=== PATIENT | female | born 1955 | race Caucasian/White ===

== ENCOUNTER 2019-09-17 09:35 | Outpatient (CLI) | payer MEDICARE, SELFPAY ==
--- NOTE | 2019-09-21 12:13 | WPDHOLTEREM ---
Holter/Event Monitor Holter/Event Monitor Date of procedure: 09/17/19 Procedure Type: 48 hour holter monitor Indications: Palpitations Conclusion: 1. 48 hour holter monitor on 09/17/19. 2. Underlying rhythm is sinus rhythm. HR range 51-129 bpm; average HR 71 bpm. 3. There are 392 premature supraventricular complexes and 1 supraventricular couplet. No supraventricular tachycardia. 4. There are 2,849 premature ventricular complexes, 55 ventricular couplets, 4 ventricular triplets, 146 ventricular bigeminy and 307 ventricular trigeminy. No ventricular tachycardia. 5. No sinoatrial or atrioventricular blocks. No significant pauses greater than 2 seconds. 6. Patient reports dizziness and palpitations which demonstrate sinus rhythm, HR range 64-89 bmp with one ventricular couplet.
== END 2019-09-17 09:36 | disposition home or self-care (01) ==
PROVIDERS: PCP Family Medicine; Visit Provider Physician Assistant
DX: R00.2 Palpitations (principal)
CPT/HCPCS: 93225; 93226

== ENCOUNTER 2019-09-17 10:06 | Emergency (ER) | payer MEDICARE, SELFPAY ==
--- NOTE | ~2019-09-17 | XR_ITS ---
XR chest 2V DATE: 09/17/2019 10:33 INDICATION: Chest pain, palpitations, profuse sweating. TECHNIQUE: AP and Lateral views COMPARISON: 08/12/2014 PA and lateral chest FINDINGS: Heart size is normal. No hilar or mediastinal enlargement. No pulmonary infiltrate or conso lidation, pleural effusion or pulmonary vascular congestion or pneumothorax is detected. Degenerative spurring of the thoracic and lumbar spine. Lumbar spinal rods and pedicle screws are not ed. IMPRESSION: No active cardiopulmonary disease Reviewed, dictated and finalized at location A.
--- NOTE | 2019-09-17 10:11 | ECG_ITS ---
Measurements Intervals [place] Rate: 69 P: 26 VA: 188 QRS: -3 QRSD: 97 T: 8 QT: 415 QTc: 446 Interpretive Statements SINUS RHYTHM VOLTAGE CRITERIA FOR LVH NONSPECIFIC T-WAVE ABNORMALITY- ANT/INF LEADS BASELINE ARTIFACT- I, II, AVL, V3, V6 BORDERLINE ECG Electronically Signed On 09-17-2019 13:57:41 CDT by Matthew Schrader D.O.
[2019-09-17 10:17] VITALS: BP 148/94; PULSE 70; RESP 15; TEMP 36.9; O2SAT 100
[2019-09-17 10:36] LABS: Basophils Absolute Auto 0.1 K/mm3 (0.0-0.1); Basophils Percent Auto 0.9 % (0.2-1.2); Eosinophils Absolute Auto 0.4 K/mm3 (0-0.3); Eosinophils Percent Auto 3.3 % (0-4.4); Hematocrit 42.4 % (37.0-47.0); Hemoglobin 13.8 g/dL (12.0-15.0); Immature Granulocyte Absolute 0.04 K/mm3 (0.00-0.031); Immature Granulocyte Percent A 0.3 % (0-0.5); Lymphocytes Absolute Auto 2.31 K/mm3 (0.9-3.2); Lymphocytes Percent Auto 19.5 % (18.3-44.2); Mean Corpuscular HGB Conc 32.5 g/dl (32-36); Mean Platelet Volume 9.1 fl (7.4-10.4); Monocytes Percent Auto 8.6 % (2.6-8.5); Neutrophils Percent Auto 67.4 % (45.5-73.1); Platelet Count Result 494 k/mm3 (150-375); Red Blood Count 4.93 M/mm3 (4.2-5.4); Red Cell Distribution Width 13.7 % (11.5-14.5); White Blood Count 11.9 K/mm3 (4.5-10.0)
[2019-09-17 10:48] LABS: Blood Urea Nitrogen 20 mg/dL (7-17); Carbon Dioxide 30 mmol/L (22-30); Chloride 96 mmol/L (98-107); Estimated CRCL calculation 77 ml/min; Estimated Glomerular Filt Rate > 60; Glucose 121 mg/dL (65-105); Potassium 3.4 mmol/L (3.4-5.0); Prothrombin Time 12.5 Seconds (11.1-14.7); Sodium 137 mmol/L (137-145)
[2019-09-17 10:49] LABS: Partial Thromboplastin Time 28.8 SECONDS (22.3-36.8)
[2019-09-17 11:00] LABS: Troponin I < 0.012 ng/mL (0.000-0.034)
--- NOTE | 2019-09-17 11:19 | ED.ARRPALP ---
HPI - Arrhythmia/Palpitations General Chief Complaint: Arrhythmia/Palpitations Stated Complaint: palpitations Time Seen by Provider: 09/17/19 10:55 History of Present Illness HPI narrative: Patient is a 64-year-old female who presents the ER with palpitations. Reports over the last month she has been having episodes where she becomes hot and sweaty and feel like her heart is racing. She will feel weak. No rotational dizziness or change in hearing. Occasional nausea but no vomiting. Has history of BPPV but had not particularly related the symptoms to that previous diagnosis. Ports symptoms can sometimes be worsened by looking down. Symptoms last anywhere from 5 minutes to several hours. Reports she had an episode at 1 AM today that lasted for several hours. She then had a couple brief episodes while in the ER and while going to be fitted for Holter monitor. They did not place her Holter monitor due to her sweating and feeling weak. PCPs performed outpatient labs without significant findings. Patient cannot identify any alleviating factors. Related Data Home Medications Medication Instructions Recorded Confirmed atenolol 50 mg tablet 50 mg PO DAILY 08/02/19 diclofenac potassium 50 mg tablet 50 mg PO TID 08/02/19 gabapentin 300 mg capsule 600 mg PO Q8H cap 08/02/19 omeprazole 20 mg capsule,delayed 20 mg PO DAILY 08/02/19 release trazodone 100 mg tablet 200 mg PO .qhs tablet 08/02/19 Allergies Allergy/AdvReac Type Severity Reaction Status Date / Time povidone Allergy Mild RASH AND Verified 09/17/19 10:16 ITCHING tetanus toxoid, adsorbed Allergy Mild CHILD Verified 09/17/19 10:16 ON O2 AFTER SHOT iodine Allergy Unknown Skin Verified 09/17/19 10:16 Reaction Tetanus Vaccines and Toxoid Allergy Unknown Swelling Verified 09/17/19 10:16 vancomycin Allergy Unknown Skin Verified 09/17/19 10:16 Reaction IODIENE Allergy Mild Rash Uncoded 09/17/19 10:16 TAPE Allergy Mild RASH/BLISTE Uncoded 09/17/19 10:16 RS Review of Systems Review of Systems: All systems reviewed & are unremarkable except as noted in HPI and below Constitutional: Constitutional: Denies chills, Reports fatigue, Denies fever(s) and Reports weakness Comments: Positive sweats ENT: Denies nasal congestion and Denies sore throat Cardiovascular: Cardiovascular: Denies chest pain, Reports rapid heart rate and Denies radiating jaw, neck or arm pain Respiratory: Respiratory: Denies cough, Denies dyspnea and Denies wheezing Gastrointestinal: Gastrointestinal: Denies abdominal pain, Reports nausea and Denies vomiting PMFSH Social History Social History Smoking status: Former smoker Smoking end date: 04/18/09 Alcohol intake: current Drinks per week: 3 Gender identity (if verbalized by the patient): Female Exam Narrative: Exam Narrative: GENERAL: Well-appearing, well-nourished, and in no acute distress. HEAD: Normocephalic, atraumatic. EYES: PERRL and EOMI. left gaze nystagmus that is worse than right gaze nystagmus that patient reports is chronic, right-sided strabismus. ENT: Mucous membranes moist. TMs normal bilaterally. CHEST: Clear to auscultation. No respiratory distress. HEART: Regular rate and rhythm. Normal peripheral pulses. ABDOMEN: Soft, nontender, nondistended, normal active bowel sounds. EXTREMITIES: Normal range of motion. No edema. Right foot drop from previous surgery. SKIN: Warm, dry, no rash. NEURO: Alert and oriented x3. Course Course Emergency Course: Unremarkable evaluation. Patient may be having symptoms from her BPPV. Will give meclizine for home. Recommend follow-up with PCP and obtaining outpatient Holter monitor. Unremarkable rhythm strip here, patient did have some PACs. Vital Signs Vital signs: Vital Signs Temperature 98.4 F 09/17/19 10:17 Pulse Rate 70 09/17/19 10:17 Respiratory Rate 15 09/17/19 10:17 B
[2019-09-17] MEDS: ASPIRIN 81 MG CHEWABLE TABLET 324 MG PO (11:47)
[2019-09-17 12:34] VITALS: PULSE 73; RESP 15; O2SAT 100
[2019-09-17 12:36] VITALS: BP 95/67; PULSE 76; RESP 16; O2SAT 100
[2019-09-17 13:53] LABS: Free T4 Free Thyroxine Reflex 1.18 ng/dL (0.78-2.19)
[2019-09-17 14:44] LABS: Total Triiodothyronine (T3) 1.72 NG/ML (0.97-1.69)
== END 2019-09-17 13:54 | disposition home or self-care (01) ==
PROVIDERS: Emergency Provider Emergency Medicine; PCP Family Medicine
DX: R00.2 Palpitations (principal); R42 Dizziness and giddiness; Z87.891 Personal history of nicotine dependence; R94.31 Abnormal electrocardiogram [ECG] [EKG]
CPT/HCPCS: 36415; 71046; 80048; 84439; 84443; 84480; 84484; 85025; 85610; 85730; 93005; 93225; 93226; 99284; A9270

== ENCOUNTER 2020-12-03 13:26 | Outpatient (CLI) | payer MEDICARE, SELFPAY ==
--- NOTE | ~2020-12-03 | DEXA_ITS ---
Bone Density Report Name: Laverne Webb Age: 65 Sex: Female Ethnicity: White Date of : 1955 Indication: postmenopausal; height loss; Referring Provider: Eduard Thacker Study: Bone densitometry was performed. Exam Date: December 03, 2020 Accession number: [id number] Bone Density: Region BMD T-score Z-score Classification Femoral Neck (Left) 0.672 -1.6 -0.1 Osteopenia Total Hip (Left) 0.910 -0.3 1.0 Normal World Health Organization criteria for BMD impression classify patients as: Normal (T-score at or above -1.0), Osteopenia (T-score between -1.0 and -2.5), or Osteoporosis (T-score at or below -2.5). 10-year Fracture Risk(1): Major Osteoporotic Fracture 7.9% Hip Fracture 0.8% Reported Risk Factors: [place] (), Neck BMD=0.672, BMI=39.1 (1) FRAX(R) Version 3.08. Fracture probability calculated for an untreated patient. Fracture probability may be lower if the patient has received treatment. Previous Exams: Region Exam Age BMD T-score BMD Change BMD Change Date g/cm2 vs Baseline vs Previous Total Hip(Left) 12/03/2020 65 0.910 -0.3 -0.069(-7.0%)# -0.022(-2.3%)# 10/17/2018 63 0.932 -0.1 -0.047(-4.8%)# -0.047(-4.8%)# 04/03/2009 54 0.979 0.3 *Denotes significance at 95% confidence level, LSC for Total Hip = 0.027 g/cm2 Clinical Information Provided by Patient: Has used the following medications: Vitamin D Patient maximum height was 66 Menopause Age: 46 No regular weight bearing exercise Drinks caffeinated beverages Onset of menses at age 9 Number of children 0 Impression: The patient has low bone mass, based on the Left Femoral Neck T-score. The patient has an estimated ten-year risk of hip fracture of 0.8% and an estimated ten-year risk of major fracture of 7.9%, based on the WHO FRAX algorithm. No significant bone loss was observed. Discussion: BONE DENSITY IS LOW AT ONE OR MORE SKELETAL SITES. This patient's lowest T-score is low at one or more skeletal sites. It meets the World Health Organization's (WHO) criteria for ?low bone mass? (T-score between -1.0 and -2.5). The patient's 10-year risk of fracture as calculated by FRAX is less than the threshold where pharmacological therapy is recommended by the National Osteoporosis Foundation (NOF). However, all treatment decisions require clinical judgment and consideration of individual patient factors, including patient preferences, comorbidities, previous drug use, risk factors not captured in the FRAX model (e.g., frailty, falls, vitamin D deficiency, increased bone turnover, interval significant
== END 2020-12-03 13:27 | disposition home or self-care (01) ==
LOC: ANHIMG 13:27
PROVIDERS: PCP Family Medicine; Visit Provider Physician Assistant
DX: Z78.0 Asymptomatic menopausal state (principal); M85.852 Other specified disorders of bone density and structure, left thigh
CPT/HCPCS: 77080

== ENCOUNTER 2021-12-21 10:01 | Outpatient (CLI) | payer MEDICARE, SELFPAY ==
--- NOTE | ~2021-12-21 | XR_ITS ---
XR wrist RT min 3V DATE: 12/24/2021 12:47 INDICATION: Right wrist pain TECHNIQUE: 3 views COMPARISON: None FINDINGS: No fracture or dislocation, periosteal reaction or bone destruction. No erosive change or c hondrocalcinosis. IMPRESSION: Negative Reviewed, dictated and finalized at location A. IMPRESSION: Negative
[2021-12-21 10:12] VITALS: BP 115/83; PULSE 74; RESP 16; TEMP 36.4; O2SAT 99
--- NOTE | 2021-12-21 10:38 | ED.SKABFB ---
HPI - Skin/Abscess/Foreign Bdy General Chief complaint: Skin/Abscess/Foreign Body Stated complaint: poision cordelia Source: patient Mode of arrival: ambulatory Limitations: no limitations History of Present Illness HPI narrative: 66-year-old female presents to [facility] with complaints of erythematous itchy rash to her chest wall, face and lower abdomen for the past 10 days. Patient reports that she believes that her cat brought poison cordelia inside to her. Patient denies shortness of breath, wheezing, trouble swallowing or difficulty breathing. Patient has not tried applying any lbhz-[id number] ointments to the area. 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 MD complaint: rash Onset (ago): day(s) () Location: head, face and chest Relieving factors: none Exacerbating factors: none Associated symptoms: denies other symptoms Treatments prior to arrival: none Related Data Home Medications Medication Instructions Recorded Confirmed buspirone 5 mg tablet 5 mg PO TID 10/04/19 12/21/21 escitalopram oxalate 20 mg tablet 20 mg PO DAILY 10/04/19 12/21/21 oxycodone-acetaminophen 5 mg-325 1 tablet PO BID PRN pain 02/02/21 12/21/21 mg tablet (Percocet) venlafaxine 75 mg capsule,extended 150 mg PO DAILY 02/02/21 12/21/21 release 24 hr cholecalciferol (vitamin D3) 125 125 mcg PO DAILY 05/25/21 12/21/21 mcg (5,000 unit) capsule meloxicam 15 mg tablet 15 mg PO DAILY 05/25/21 12/21/21 multivitamin (Daily Multi-Vitamin 1 tablet PO DAILY 05/25/21 12/21/21 tablet) trazodone 100 mg tablet 150 mg PO .qhs 05/25/21 12/21/21 venlafaxine 150 mg 150 mg PO DAILY 05/25/21 12/21/21 capsule,extended release 24 hr Allergies Allergy/AdvReac Type Severity Reaction Status Date / Time povidone Allergy Mild RASH AND Verified 12/21/21 10:25 ITCHING tetanus toxoid, adsorbed Allergy Mild CHILD Verified 12/21/21 10:25 ON O2 AFTER SHOT iodine Allergy Unknown Skin Verified 12/21/21 10:25 Reaction Tetanus Vaccines and Toxoid Allergy Unknown Swelling Verified 12/21/21 10:25 vancomycin Allergy Unknown Skin Verified 12/21/21 10:25 Reaction IODIENE Allergy Mild Rash Uncoded 12/21/21 10:25 TAPE Allergy Mild RASH/BLISTE Uncoded 12/21/21 10:25 RS Review of Systems Constitutional: Constitutional: Denies chills, Denies fatigue, Denies fever(s) and Denies weakness ENT: Denies dizziness Cardiovascular: Cardiovascular: Denies chest pain Respiratory: Respiratory: Denies chest congestion, Denies cough, Denies dyspnea and Denies wheezing Gastrointestinal: Gastrointestinal: Denies heartburn, Denies diarrhea, Denies nausea and Denies vomiting Integumentary/Breasts: Skin/Breast: Reports rash Allergic/Immunologic: Allergic/Immunologic: Denies lip swelling, Denies throat swelling, Denies tongue swelling and Denies wheezing PMFSH Past Medical History Medical History Benign essential hypertension Depressive disorder, not elsewhere classified Major depressive disorder, recurrent, moderate Mixed hyperlipidemia Obesity, unspecified Spinal stenosis of lumbar region Type 2 diabetes mellitus without complications Surgical History Surgical History H/O spinal fusion (~2007) H/O spinal fusion (~2009) History of left knee replacement (~2018) History of total right knee replacement (~2019) Family History Family History Father Patient's father is Diabetes mellitus Hypertension Family history of cardiovascular disease Mother Family history of hypercholesterolemia Sibling Depression Family history of malignant neoplasm of breast in first degree relative Grandparent Carcinoma of colon Other Family history of malignant neoplasm of male breast Social History Social History (Reviewed 12/21/21 @ 10:39
[2021-12-21] MEDS: methylPREDNISolone SOD SUCC 125 MG VIAL 80 MG IM (10:48)
== END 2021-12-24 12:19 ==
LOC: EXPGOSH 10:42 → EXPGOSHRAD 12-24 12:21
PROVIDERS: Emergency Provider Nurse Practitioner Family; PCP Emergency Medicine; Visit Provider Emergency Medicine
DX: M25.531 Pain in right wrist (principal)
CPT/HCPCS: 73110; 96372; 99213; G0463; J2930

== ENCOUNTER 2022-05-11 21:36 | Outpatient (NON) | payer MEDICARE, SELFPAY | END 2022-05-11 21:37 | disposition home or self-care (01) | LOC: ANHLAB 21:37 | PROVIDERS: PCP Emergency Medicine; Visit Provider Emergency Medicine | DX: R30.0 Dysuria (principal) | CPT/HCPCS: 87086 ==

== ENCOUNTER 2023-08-23 09:30 | Outpatient (RCR) | payer MEDICARE, SELFPAY ==
[2023-08-11 10:51] VITALS: BMI 39.8
[2023-08-23 09:30] VITALS: BMI 39.8
== END 2023-10-31 09:09 | disposition home or self-care (01) ==
LOC: ANHDMC 09:30
PROVIDERS: PCP Emergency Medicine; Visit Provider Emergency Medicine
DX: E11.42 Type 2 diabetes mellitus with diabetic polyneuropathy (principal); Z79.899 Other long term (current) drug therapy; Z71.3 Dietary counseling and surveillance
CPT/HCPCS: 97802; 97803

== ENCOUNTER 2024-06-14 08:25 | Outpatient (CLI) | payer MEDICARE, SELFPAY | END 2024-06-14 08:26 | disposition home or self-care (01) | PROVIDERS: PCP Nurse Practitioner Family; Visit Provider Family Medicine | DX: Z12.31 Encounter for screening mammogram for malignant neoplasm of breast (principal) | CPT/HCPCS: 77063; 77067 ==

== ENCOUNTER 2024-08-07 10:03 | Outpatient (CLI) | payer MEDICARE, SELFPAY ==
--- NOTE | ~2024-08-07 | XR_ITS ---
Lumbosacral Spine: AP and lateral views Clinical History: Facet arthropathy COMPARISON: 06/03/2014 Findings: Stable posterior fusion from L2 through the sacrum. There is mild compression of L1, age-in determinate. There is advanced degenerative narrowing at the lower thoracic spine and L1-L2, as well as throughout the remainder of the lumbar spine. The sacroiliac joints are normally outlined. Impression: Mild L1 compression fracture, age-indeterminate. Diffuse, moderate to advanced degenerative disc narrowing throughout spine. Stable posterior fusion from L2 through the sacrum. Reviewed, dictated and finalized at location M. Impression: Mild L1 compression fracture, age-indeterminate. Diffuse, moderate to advanced degenerative disc narrowing throughout spine. Stable posterior fusion from L2 through the sacrum.
== END 2024-08-07 10:04 | disposition home or self-care (01) ==
LOC: MICIMG 10:04
PROVIDERS: PCP Nurse Practitioner Family; Visit Provider Nurse Practitioner Family
DX: M47.819 Spondylosis without myelopathy or radiculopathy, site unspecified (principal); S32.010D Wedge compression fracture of first lumbar vertebra, subsequent encounter for fracture with routine healing; X58.XXXD Exposure to other specified factors, subsequent encounter
CPT/HCPCS: 72110

== ENCOUNTER 2024-08-28 12:48 | Outpatient (CLI) | payer MEDICARE, SELFPAY ==
--- NOTE | ~2024-08-28 | MR_ITS ---
MRI of the lumbar spine Clinical History: Failed back syndrome Technique: Axial T2-weighted images, and sagittal T1-weighted, T2-weighted, and T2 fat-sat images wer e acquired. Following intravenous administration of 19 cc ProHance gadolinium, T1-weighted fat-sat im aging was performed in the axial and sagittal planes. Findings: No acute fracture identified. There is probable mild chronic loss of height of L1. There is posterior fusion from L2 through S1 with bilateral rods and transpedicular screws present. No suspic ious bone marrow signal abnormality seen. At L1-L2, there is severe degenerative disc narrowing. There is mild disc bulge with severe facet art hropathy. There is moderate to severe spinal canal stenosis/thecal sac compression. There is moderate to advanced left neural foraminal narrowing. There is minimal right neural foraminal narrowing. At L2-L3, there is fusion across the disc space. No spinal canal stenosis. There is probable mild to moderate left neural foraminal narrowing. Right neural foramen preserved. At L3-L4, there is no spinal canal stenosis. There is posterior decompression. Neural foramina are re latively well-preserved. At L4-L5, there is posterior decompression. No canal stenosis. No definite neural foraminal narrowing . At L5-S1, there is no spinal canal stenosis. Neural foramina appear preserved. There is a chronic postoperative seroma in the posterior paravertebral soft tissues from the L3-S1 le vels. No aggressive/suspicious soft tissue abnormality seen in the paravertebral regions. No abnormal postcontrast enhancement identified. Impression: Posterior fusion from L2 through S1 with associated posterior decompressions, as detailed above. Severe degenerative spondylosis at L1-L2, with moderate to severe spinal canal stenosis. Please see d etails above. Postoperative seroma in the posterior paravertebral soft tissues. Reviewed, dictated and finalized at location M. Impression: Posterior fusion from L2 through S1 with associated posterior decompressions, a s detailed above. Severe degenerative spondylosis at L1-L2, with moderate to severe spinal canal stenosis. Please see details above. Postoperative seroma in the posterior paravertebral soft tissues.
--- OUTSIDE RECORDS SUMMARY | 2024-08-28 13:01 | XMS_ITS | Clinical Summary ---
Author Organization [facility] Address [address] [place] [address] Phone Care Team Providers Care Undercollar Maker Name Role Phone Oliverio Waite MD Primary Care Provider [phone] Allergies Active Allergy Reactions Criticality Noted Date Comments Povidone Iodine Hives,Itching High 10/13/2018 Lafleur skins Iodine Rash 11/21/2016 Iodinated Contrast Media Hives,Itching High Lafleur skin Tetanus Toxoid Anaphylaxis High 12/11/2015 Medications indapamide (LOZOL) 2.5 MG Tablet Take 2.5 mg by mouth daily. Active metFORMIN (GLUCOPHAGE) 500 MG Tablet Take 500 mg by mouth 3 times daily (with meals). Active atenolol (TENORMIN) 50 MG Tablet Take 50 mg by mouth daily. Active gabapentin (NEURONTIN) 300 MG Capsule Take 600 mg by mouth 3 times daily. Active lisinopril (PRINIVIL, ZESTRIL) 10 MG Tablet Take 10 mg by mouth daily. Active DULoxetine (CYMBALTA) [address] Particles Take 60 mg by mouth 2 times daily. Active atorvastatin (LIPITOR) 40 MG Tablet Take 40 mg by mouth daily. Active Omeprazole 20 MG Tablet Delayed Response Take 20 mg by mouth daily. Active other 1 Applicator by Other route 4 times daily as needed. meloxicam 0.9%, tramdol .025%, topiramate 1%, lidocaine 2%, prilocaine 2% Active Ziconotide Acetate (PRIALT IT) by Intrathecal route. Active ketorolac (TORADOL) 10 MG Tablet Take 1 Tab by mouth every 4 hours as needed for Pain. 20 Tab 04/26/201 8 Active diclofenac (VOLTAREN) 50 MG Tablet Delayed Response Take 50 mg by mouth 3 times daily. Active tamsulosin (FLOMAX) 0.4 MG Capsule Take 0.4 mg by mouth daily. Active morphine 100 MG/5ML Solution Acti ve CALCIUM CARBONATE-VITAM IN D PO Take by mouth. 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 Cellulitis of the toe Bone spur Overview (03/04/2015): S/p exostectomy l hallux x 4 weeks/3 days healed Family History Medical History Relation Name Comments Diabetes Father Heart Attack Father Cancer Maternal Aunt breast Cancer Maternal Grandmother colon Cancer Paternal Aunt breast Diabetes Paternal Grandmother Cancer Sister breast Relation Name Status Comments Father Maternal Aunt Maternal Grandmother Mother Alive Paternal Aunt Paternal Grandmother Sister Social History Tobacco Use Types Packs/Day Years Used Date Smoking Tobacco: Former Cigarettes 1 40 0 10/14/1959 - 10/14/1999 Smokeless Tobacco: Never Alcohol Use Standard Drinks/Week Comments No 0 (1 standard drink = 0.6 oz pur e alcohol) PHQ-2 Answer Date Recorded PHQ-2 Score 0 12/30/2018 Comments No Sex and Gender Information Value Date Recorded Sex Assigned at Not on file Legal Sex Female 12:03 AM CDT Gender Identity Not on file Sexual Orientation Not on file Last Filed Vital Signs Vital Sign Reading Time Taken Comments Blood Pressure 150/80 07/25/2020 8:06 PM CDT Pulse 80 07/25/2020 8:06 PM CDT Temperature 36.8 C (98.2 F) 07/25/2020 5:20 PM CDT Respiratory Rate 18 07/25/2020 5:20 PM CDT Oxygen Saturation 97% 07/25/2020 5:20 PM CDT Inhaled Oxygen Concentration - - Weight 106.6 kg (235 lb) 07/25/2020 5:20 PM CDT Height 167.6 cm (5' 6 ) 07/25/2020 5:20 PM CDT Body Mass Index 37.93 07/25/2020 5:20 PM CDT Plan of Treatment Health Maintenance Due Date Last Done Comments Hepatitis C Virus (HCV) Screening 1955 TdaP Immunization 1955 Cologuard 01/03/2006 Immunochemical Fecal Occult Blood 01/03/2006 Pneumococcal Immunization (5 0+ years) (1 of 1 - PCV) 01/03/2006 Zoster Immunization (1 of 2) 01/03/2006 Colonoscopy 11/08/2023 11/07/2018 Colorectal Cancer Screening 11/08/2023 Influenza Immunization (#1) 12/18/202311/17, 12/14/2017 SARS-COV-2 Immunization ( season) 2023 03/06/2021, 08/01/2020, 07/04/2020 Respiratory Syncytial Virus (RSV) Immunization (Adult) (1 - 1-dose 75+ series) 01/03/2031 11/07/2018 Hepatitis B Immunization Aged Out No longer eligible based on patient's age to complete this topic Meningococcal Immunization (ACWY) Aged Out No longer eligible b ased on patient's age to complete this topic Rotavirus Immunization Aged Out No lo nger eligible based on patient's age to complete this topic Insurance MEDICARE C [employer] Care Teams Undercollar Maker Relationship Specialty Start Date End Date Oliverio Waite MD [address] [address] PCP - General Family Medicine 05/10/15
--- OUTSIDE RECORDS SUMMARY | 2024-08-28 13:01 | XMS_ITS | Continuity of Care Document ---
Author Organization [facility] Address [address] [place] [address] Phone Care Team Providers Care Tyre Retreader Name Role Phone Administrative, Provider Unavailable Unavail able Procedures Procedure Date Medical Record Copy Medical Record Copy Per Page Affidavit Medical Record Copy Medical Record Copy Per Page Remove lumbar spine lamina, 1 seg Remove added spine lamina, 1 seg 2007 Remove added spine lamina, 1 seg 2007 Lumbar spine fusion, posterolateral Spine fusion, each add'lverteb2007 Spine fusion, each add'lvertebra 2007 Insert spine seg fix, post, 3-6 seg Laminotomy, reexplr 1 intrspc lumbr Lamntmy reexplr ea ad lumbr intrspc Lamntmy reexplr ea ad lumbr intrspc Remove lumbar spine lamina, 1 seg Remove added spine lamina, 1 seg 2007 Remove added spine lamina, 1 seg 2007 Lumbar spine fusion, posterolateral Spine fusion, each add'lvertebra 2007 Spine fusion, each add'lvertebra 2007 Insert spine seg fix, post, 3-6 seg Laminotomy, reexplr 1 intrspc lumbr Lamntmy reexplr ea ad lumbr intrspc Lamntmy reexplr ea ad lumbr intrspc Office/outpatient visit,est, mod 2007 Office/outpatient visit,new, mod 2007 X-ray exam lower spine 2-3 views 2007 Advance Directives Directive Yes / No Effective Date File Name No Information Encounters Encounter Description Practice Location Reason(s) For Visit Diagnoses Date Provider Providers Copied on Encounter [facility], [address] [place] [address], [id number], [place] tel:[phone] [facility] No Information 4201 0 Administrative Provider. [address] [place] [address], [id number], [place]. tel:[phone] [facility], [address] [place] [address], [id number], [place] tel:[phone] [facility] No Information Dec1 9200 8 Administrative Provider. [address] [place] [address], [id number], [place]. tel:[phone] [facility], [address] [place] [address], [id number], [place] tel:[phone] [place] [address] No Information Dec-0 8-200 8 [facility]. [address] [place] [address], [id number], [place]. tel:[phone] [facility], [address] [place] [address], [id number], [place] tel:[phone] [place] [address] No Information Dec-0 8-200 8 [facility]. [address] [place] [address], [id number], [place]. tel:[phone] Office/outpa tient visit,est, mod [facility], [address] [place] [address], [id number], tel:[phone] [facility] No Information 8 [facility]. [address], [address], [place], [place], [id number], . tel:[phone] Office/outpa tient visit,new, [facility], [address], [place], [id number], tel:[phone] [facility] No Information 0200 8 [facility] [place]. [address], [address], [place], [place], [id number], . tel:[phone] Referring Provider: Tristan Drake, [address] [place] [address], [place], [address]. tel:[phone] Family History Family Member Type Diagnosis Age At Onset No Information Payers Payer name Insurance type Covered alliance party ID Authoriza tion(s) No Information Social History Type Description Quantity Date Captured Comments Sex Female Smoking Status No Information Chief Complaint And Reason For Visit No Information Reason For Referral Reason For Referral No Information History Of Present Illness Encounter Date Complaint History Of Prese nt Illness No Information Functional Status Date Functional Assessmen t No Information Instructions Date Instruction Additional Infor mation No Information Assessments Type Assessment Date No Information Patient Care Teams Name Effective Dates (start - stop) Status Members No Information
--- OUTSIDE RECORDS SUMMARY | 2024-08-28 13:01 | XMS_ITS | Clinical Summary ---
Author Organization [facility] Address [address] [place] [address] Care Team Providers Care Correction Officer Reformatory Name Role Phone Unavailable Primary Care Provider Unavailabl e Allergies Active Allergy Reactions Criticality Noted Date Comments Iodine Other (See Comments) 05/21/2023 gets cramer Tetanus Toxoid Anaphylaxis High 05/21/2023 Medications dulaglutide (TRULICITY) 1.5 mg/0.5 mL injection ADMINISTER 1.5 MG UNDER THE SKIN ONCE WEEKLY 2 mL 05/22/2023 1:39 PM FACE HARDENER Active Encounters Date Type Department Care Team Description 07/04/2024 External Device Data [facility] ABSTRACTION Provider, Abstract 06/27/2024 External Device Data [facility]STRA[facility] Provider, Abstract 06/26/2024 External Device Data [facility]STRACTION Provider, Abstract 06/23/2024 External Device Data [facility]CTION Provider, Abstract 06/23/2024 External Device Data [facility]STRACTION Provider, Abstract 06/20/2024 External Device Data [facility] ABSTRACTION Provider, Abstract 06/20/2024 External Device Data [facility] ABSTRACTION Provider, Abstract 06/06/2024 External Device Data [facility] ABSTRACTION Provider, Abstract from Last 3 Months Social History Tobacco Use Types Packs/Day Years Used Date Smoking Tobacco: Never Assessed Comments Unknown Sex and Gender Information Value Date Recorded Sex Assigned at Not on file Legal Sex Female 12:07 PM FACE HARDENER Gender Identity Not on file Sexual Orientation Not on file Plan of Treatment Health Maintenance Due Date Last Done Comments DTAP/TDAP/TD VACCINES (1 - Tdap) 01/03/1975 BREAST CANCER SCREENING 1996 COLORECTAL SCREENING 01/03/2001 Colorectal Cancer Screening 01/03/2001 FIT-DNA Q 3 years 01/03/2001 FIT/FOBT Q 1 year 01/03/2001 Flex Sig/CT Colonography Q 5 years 01/03/2001 PNEUMOCOCCAL VACCINE 50+ YEARS (1 of 1 - PCV) 01/04/20 ZOSTER VACCINE (1 of 2) 01/03/2006 OSTEOPOROSIS SCREENING 01/03/2021 INFLUENZA VACCINE (#1) 2023 RSV VACCINE (60+ or ) (1 - 1-dose 75+ series) 01/03/2031 Insurance RX [employer] RX Member Subscriber Plan / Payer (Ef fective 2023-Present) Name:Laverne Webb Relation to Subscriber:Self Name:Laverne Webb Subscriber ID:Not on file Payer ID:Not on file Group ID:[id number] Type:RX Medicare Part D Address: [address]
--- OUTSIDE RECORDS SUMMARY | 2024-08-28 13:01 | XMS_ITS | Referral Summary ---
Author Organization [facility] Address [address] [place] [address] Care Team Providers Care Career Advisor Name Role Phone Tre Harrison MD Unavailable [phone] Shyam Telles MD Primary Care Provider [phone] Allergies Active Allergy Reactions Criticality Noted Date Comments Adhesive Rash Medium Povidone-Iodine Swelling Medium 01/05/2019 Pt stating almost killed me severely infected/inflammed Iodine Rash,Other (See comments) Medium 11/21/2016 Betadine, all topical iodines Metrizamide Hives,Itching Medium Sulfa (Sulfonamide Antibiotics) Swelling Medium Tetanus Vaccines And Toxoid Other (See comments) Reaction: Unknown, Medications metFORMIN XR (GLUCOPHAGE XR) 500 mg 24 hr tablet Take 1 tablet (500 mg total) by mouth 3 (three) times a day 4 7 Active atenolol (TENORMIN) 50 mg tablet Take 1 tablet (50 mg total) by mouth daily Active atorvastatin (LIPITOR) 40 mg tablet Take 1 tablet (40 mg total) by mouth daily Active ONETOUCH ULTRA BLUE TEST STRIP strip USES TO TEST BLOOD SUGAR THREE TIMES DAILY 0 9 Active ONETOUCH ULTRA2 kit USE TO TEST BLOOD SUGAR THREE TIMES DAILY 0 9 Active traZODone (DESYREL) 100 mg tabletIndication s:major depressive disorder Take 1 tablet (100 mg total) by mouth nightly takes 2 tabs at HS Active calcium carbonate (CALCIUM 600 ORAL)Indications :other Take 1 tablet by mouth daily. Indications: other Active PSYLLIUM HUSK, BULK, MISCIndications: other Take 1 Dose by mouth daily. 2-3 tab daily PRN for constipation Indications: other Active omeprazole (PriLOSEC) 20 mg capsule Take 1 capsule (20 mg total) by mouth daily 3 9 Active morphine concentrated solution 100 mg/5 mL Active escitalopram (LEXAPRO) 20 mg tablet Take 1 tablet (20 mg total) by mouth daily Active venlafaxine XR (EFFEXOR-XR) 150 mg 24 hr capsule Take 1 capsule (150 mg total) by mouth daily Active cyanocobalamin (Vitamin B-12) 1,000 mcg tabletIndication s:Prevention of Vitamin B12 Deficiency Take 1 tablet (1,000 mcg total) by mouth daily Active cholecalciferol (VITAMIN D-3) 2000 unit tablet Take 1 tablet (2,000 Units total) by mouth daily Active busPIRone (BUSPAR) 10 mg tabletIndication s:Generalized Anxiety Disorder Take 1 tablet (10 mg total) by mouth 2 (two) times a day Active meloxicam (MOBIC) 15 mg tablet Take 1 tablet (15 mg total) by mouth daily Active oxyCODONE-acetam inophen (PERCOCET) 10-325 mg per tablet Take 1 tablet by mouth every 8 (eight) hours as needed 0 3 Active Active Problems Problem Noted Date Diagnosed Date Bone spur 08/13/2022 08/13/2022 Overview (08/13/2022): S/p exostectomy l hallux x 4 weeks/3 days healed Cellulitis of toe 08/13/2022 08/13/2022 Cutaneous ulcer 08/13/2022 08/13/2022 Overview (08/13/2022): R hallux Peripheral autonomic neuropathy 08/13/2022 08/13/2022 End of battery life of intrathecal infusion pump 08/10/2022 Radiculopathy, lumbosacral region 08/10/2022 Orthopedic aftercare 01/17/2020 Thrombocytosis 10/13/2018 Primary osteoarthritis of right knee 10/10/2018 Unspecified orthopedic aftercare 01/12/2017 Aftercare following left knee joint replacement surgery 01/12/2017 Primary osteoarthritis of left knee 12/13/2016 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 08/13/2022 Notalgia 07/07/2011 Gastroesophageal reflux disease 01/15/2010 Hyperlipidemia 01/15/2010 Diabetes mellitus 01/15/2010 Anxiety disorder 01/15/2010 Chronic pain syndrome 01/15/2010 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 01/15/2010 Obesity 01/15/2010 Anemia 01/14/2010 Elevated alanine aminotransferase (ALT) level Elevated aspartate aminotransferase level 2009 Hypertension 07/16/2009 Infection and inflammatory r eaction due to device, implant, and graft 07/16/2009 Overview (07/28/2017): Description: osteo @ site of spinal fusion Vitamin D deficiency disease 07/16/2009 Immunizations Immunization Administration Dates Next Due Influenza, Trivalent, IM (MDV) 01/14/2010 Social History Tobacco Use Types Packs/Day Years Used Date Smoking Tobacco: Former Cigarettes 1 40 1 967 - 2007 Smokeless Tobacco: Never Tobacco Cessation:Counseling Given: Not Answered Alcohol Use Standard Drinks/Week Comments Not Currently 0 (1 standard drink = 0.6 oz pur e alcohol) AUDIT-C Answer Date Recorded Frequency of Alcohol Consumption Not on file 10/26/2022 Q2: How many drinks containi ng alcohol do you have on a typical day when you are drinking? Patient does not drink Frequency of Binge Drinking Not on file 10/16 Personal Safety Answer Date Recorded Have you ever been in or are you currently in a harmful physical or emotional relationship or is someone making you feel afraid or unsafe? 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 Gender Identity Not on file Sexual Orientation Not on file Last Filed Vital Signs Vital Sign Reading Time Taken Comments Blood Pressure 114/78 11/02/2022 11:58 AM CDT Pulse 61 11/02/2022 11:58 AM CDT Temperature 37 C (98.6 F) 10/26/2022 9:00 AM CDT Respiratory Rate 18 11/02/2022 11:5 8 AM CDT Oxygen Saturation 97% 11/02/2022 11: 58 AM CDT Inhaled Oxygen Concentration - - Weight 101.9 kg (224 lb 11.2 oz) 2022 11:58 AM CDT Height 162.6 cm (5' 4 ) 11/02/2022 11:5 8 AM CDT Body Mass Index 38.57 11/02/2022 11:58 AM CDT Plan of Treatment Not on file Medical Devices Implanted Type Area Strip Cutter Device Identifier Shelf Expiration Date Model / Serial / Lot [employer] 6195-1-001 Cement Bone Simplex Gentamicin High Viscosity 40gm - [id number] Implanted:Qty: 1 on 01/15/2019 by Parveen Leiva MD at [facility] Bone Cement Right: Knee [employer] 07/16/2020 6195-1-001 / / [id number] [employer] 6195-1-001 Cement Bone Simplex Gentamicin High Viscosity 40gm - [id number] Implanted:Qty: 1 on 01/15/2019 by Parveen Leiva MD at [facility] Bone Cement Right: Knee [employer] 07/16/2020 6195-1-001 / / [id number] Intrathecal Pain Pump Intrathecal Pain Pump Right: Abdomen Medtronic Medtronic Inc Synchromed Ii .78in [place] Filter Mesh Pouch Programmable 8637-20 - [id number] Implanted:Qty: 1 on 10/26/2022 by Dallas Nichols MD at [facility] Intrathecal Pain Pump Right: Abdomen [employer] Inc 04/14/2024 8637-20 / / [id number] [employer] [id number] Attune Cemented Posterior Stabilize Knee Right 6 Component - [id number] Implanted:Qty: 1 on 01/15/2019 by Parveen Leiva MD at [facility] Right: Knee [employer] 10/15/2028 [id number] / / [id number] [employer] [id number] Attune S+ Cement Fix Bearing Knee 6 Baseplate Tibial - [id number] Implanted:Qty: 1 on 01/15/2019 by Parveen Leiva MD at [facility] Right: Knee [employer] 08/16/2027 [id number] / / [id number] [employer] [id number] Attune 7mm Posterior Stabilize Fix Bearing Knee 6 Insert Tibial - [id number] Implanted:Qty: 1 on 01/15/2019 by Parveen Leiva MD at [facility] Right: Knee [employer] 09/16/2023 [id number] / / [id number] Procedures Procedure Name Priority Date/Time Associated Diagnosis Comments COMPREHENSIVE METABOLIC PANEL Routine 01/05/2019 10:57 AM CDT HEMOGLOBIN A1C Routine 01/05/2019 10:57 AM CDT from Last 3 Months or Most Recently Relevant to Health Maintenance Results * (ABNORMAL) Hemoglobin A1c (01/05/2019 10:57 AM CDT) Hgb A1C 6.3(H) 4.8 - 5.6 % [facility] - 01 Comment: Prediabetes: 5.7 - 6.4 Diabetes: >6.4 Glycemic control for adults with diabetes: <7.0 01/05/2019 10:5 7 AM CDT 01/05/2019 Narrative [facility] - 01/08/2019 6:07 PM CDT Performed at: [address] [place] [id number] Machine I Coremaker: Easton Castillo PhD, Phone: [phone] Parveen Leiva MD LAB BLOOD ORDERABLES Fin al Result [facility] - 01 * (ABNORMAL) Comprehensive metabolic panel (01/05/2019 10:57 AM CDT) Glucose 125(H) 65 - 99 mg/dL [facility] - 01 BUN 26 8 - 27 mg/dL [facility] - 01 Creatinine, Serum 0.88 0.57 - 1.00 mg/dL [facility] - 01 eGFR If NonAfricn Am 70 >59 mL/min/1.7 3 [facility] - 01 eGFR If Africn Am 81 >59 mL/min/1.7 3 [facility] - 01 BUN/creat ratio 30(H) 12 - 28 [facility] - 01 Sodium 142 134 - 144 mmol/L [facility] - 01 Potassium, sr 4.1 3.5 - 5.2 mmol/L [facility] - 01 Chloride 94(L) 96 - 106 mmol/L [facility] - 01 CO2 26 20 - 29 mmol/L [facility] - 01 Calcium 10.2 8.7 - 10.3 mg/dL [facility] - 01 Protein, sr 7.1 6.0 - 8.5 g/dL [facility] - 01 Albumin 4.6 3.6 - 4.8 g/dL [facility] - 01 Globulin, Total 2.5 1.5 - 4.5 g/dL [facility] - 01 A/G Ratio 1.8 1.2 - 2.2 [facility] - 01 Bilirubin, Total 0.3 0.0 - 1.2 mg/dL [facility] - 01 Alk phos 101 39 - 117 IU/L [facility] - 01 AST 15 0 - 40 IU/L [facility] - 01 ALT 15 0 - 32 IU/L [facility] - 01 01/05/2019 10:5 7 AM CDT 01/05/2019 Narrative [facility] - 01/08/2019 6:07 PM CDT Performed at: - [facility] [address] [id number] Machine I Coremaker: Easton Castillo PhD, Phone: [phone] Parveen Leiva MD LAB BLOOD ORDERABLES Fin al Result [facility] - 01 from Last 3 Months or Most Recently Relevant to Health Maintenance Insurance [facility] [place] [address] Advance Directives For more information, please contact: [phone] * Full Code (Latest Code Status on File) Date Activated Date Inactivated Comments 01/15/2019 1:36 PM 01/16/2019 8:26 PM Care Teams Career Advisor Relationship Specialty Start Date End Date Shyam Telles MD PCP - General Family Medicine 08/10/22 Tre Harrison MD Medical Oncologist/Electrical Prospector Hematology and Oncology 10/17/18
--- OUTSIDE RECORDS SUMMARY | 2024-08-28 13:01 | XMS_ITS | Clinical Summary ---
Author Organization [facility] Address [address] [place] [address] Care Team Providers Care Auto Damage Insurance Appraiser Name Role Phone Unknown, Provider Primary Care Provider Unavaila ble Source Comments [facility],non-owned Affiliates and Associated Physician Practices is amultiple site organization consisting of ambulatory clinics and hospital sitesin [place], [place], [place] and [place]. This disclosure is being madepursuant to the Care Everywhere program and may not contain all information available regarding this patient. 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 Gender Identity Not on file Sexual Orientation Not on file Plan of Treatment Health Maintenance Due Date Last Done Comments BONE DENSITY TESTING 1956 COLOGUARD (AGES 45-75) - COL ON CA SCREENING 1956 COLON MONITORING 1956 COLONOSCOPY - COLON CA SCREENING 1956 CT COLONOGRAPHY - COLON CA SCREENING 1956 Colorectal Cancer Screening 1956 FIT - COLON CA SCREENING 1956 FLEX SIG - COLON CA SCREENING 1956 LIPID TESTING 1956 MAMMOGRAM 1956 HEPATITIS C SCREENING 12/30/1973 DTAP/TDAP/TD VACCINES (1 - Tdap) 01/03/1975 PNEUMOCOCCAL VACCINE 50+ (1 of 1 - PCV) 01/03/2006 ZOSTER VACCINE (1 of 2) 01/03/2006 COVID-19 VACCINE ( - 2023-2 5 season) 2023 DEPRESSION SCREENING 04/18/2024 INFLUENZA VACCINE (Season Ended) 2024 Respiratory Syncytial Virus (RSV) Vaccine Pt: or over 60 yrs (1 - 1-dose 75+ series) 01/03/2031 HEPATITIS B VACCINE Aged Out No longe r eligible based on patient's age to complete this topic HIB VACCINE Aged Out No longer eligi ble based on patient's age to complete this topic HPV VACCINE Aged Out No longer eligi ble based on patient's age to complete this topic MENINGOCOCCAL (Group B) VACC INE SHARED DECISION-MAKING Aged Out No longer eligibl e based on patient's age to complete this topic MENINGOCOCCAL GROUPS A/C/Y/W VACCINE Aged Out No longer eligible b ased on patient's age to complete this topic Insurance MEDICARE [facility] [place], [place] MEDICARE [facility] Care Teams Auto Damage Insurance Appraiser Relationship Specialty Start Date End Date Unknown, Provider PCP - General 05/19/16
--- OUTSIDE RECORDS SUMMARY | 2024-08-28 13:01 | XMS_ITS | Continuity of Care Document ---
Author Organization [facility] Address [address] [place] [address] [place] [address] Phone Care Team Providers Care Documentation Spec Name Role Phone Myesha Parker Unavailable Unavailable Advance Directives Directive Yes / No Effective Date File Name No Information Encounters Encounter Description Practice Location Reason(s) For Visit Diagnoses Date Provider Providers Copied on Encounter [facility], [address], [place], [place], [id number], [place] tel:[phone] [facility] No Information 3-[address] Elena Brunner. [address] , [address], [place], [place], [facility], . tel:[phone] Referring Provider: José Luis Jj, [address], [place], [place], [facility]. tel:[phone] Family History Family Member Type Diagnosis Age At Onset No Information Payers Payer name Insurance type Covered republican ID Authoriza tigunjan(s) [facility] Commercial CI [id number] Social History Type Description Quantity Date Captured [...]
--- OUTSIDE RECORDS SUMMARY | 2024-08-28 13:01 | XMS_ITS | Clinical Summary ---
Author Organization [facility] Address [address] [place] [address] Care Team Providers Care Boat Motor Mechanic Name Role Phone Tre Harrison MD Unavailable [phone] Shyam Telles MD Primary Care Provider [phone] Allergies Active Allergy Reactions Criticality Noted Date [...] Next Due Influenza, Trivalent, IM (MDV) 01/14/2010 Surgical History Surgery Date Site/Laterality Comments BACK SURGERY KNEE SURGERY JOINT REPLACEMENT SPINAL FUSION as a result has weakness in bilat lower ext INTRATHECAL PUMP IMPLANTATION Medical History Medical History Date Comments Hx Other Medical 04/2016 Pain Pump Impla nt- Prialt Hypertension Hypercholesteremia Peripheral neuropathy Depression Osteoarthritis Diabetes mellitus (HCC) Anemia Arthritis Depression Sleep apnea Heart attack (HCC) 20 years ago, [place] during stress test Asthma GERD (gastroesophageal reflux disease) Type 2 diabetes mellitus (HCC) Family History Medical History Relation Name Comments Alcohol abuse Other Arthritis Other Cancer Other Diabetes Other Heart disease Other Hypertension Other Stroke Other Relation Name Status Comments Other Social History Tobacco Use Types Packs/Day Years [...] on file 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 Gender Identity Not on file Sexual Orientation Not on file Obstetrics History Last Filed Vital Signs Vital Sign Reading [...] 11/02/2022 11:58 AM CDT Plan of Treatment Health Maintenance Due Date Last Done Comments Albumin Creatinine Ratio, Urine 1956 Breast Cancer Screening-Mammogram 1956 Colon Cancer Screening-Colonoscopy 1956 Depression Screening 1956 Hepatitis C Screening 1956 Osteoporosis Screening-Bone Density Scan 1956 Dilated Eye Exam 1956 Foot Exam 1956 Lipid Panel 1956 DTaP/Tdap/Td Vaccine (1 - Tdap) 01/03/1967 Hepatitis B Screening 01/03/1974 Pneumococcal vaccine 65+ (1 of 2 - PCV) 01/03/1975 Zoster Vaccine (1 of 2) 01/03/2006 Hemoglobin A1C 07/06/2019 01/05/2019 eGFR 01/06/2020 01/05/2019, 12/17, 12/24/2016, Additional history exists Well Visit 65+ 01/03/2021 Fall Risk Assessment 11/03/2023 11/02/2022 Influenza Vaccine (Season Ended) 2024 12/11/2018, 12/14/2017, 01/14/2010 Medical Devices Implanted Type Area Retail Route Supervisor Device Identifier Shelf Expiration Date Model / Serial / Lot [employer] 6195-1-001 Cement Bone Simplex Gentamicin High Viscosity 40gm - [id number] Implanted:Qty: 1 on 01/15/2019 by Parveen Leiva MD at [facility] Bone Cement Right: Knee [employer] 07/16/2020 6195-1-001 / / [id number] [employer] 6195-1-001 Cement Bone Simplex Gentamicin High Viscosity 40gm - [id number] Implanted:Qty: 1 on 01/15/2019 by Parveen Leiva MD at [facility] Bone Cement Right: Knee [employer] 07/16/2020 6195-1-001 / / [id number] Intrathecal Pain Pump Intrathecal Pain Pump Right: Abdomen Medtronic [employer] Synchromed Ii .78in [place] Filter Mesh Pouch Programmable 8637-20 - [id number] Implanted:Qty: 1 on 10/26/2022 by Dallas Nichols MD at [facility] Intrathecal Pain Pump Right: Abdomen [employer] 04/14/2024 8637-20 / / [id number] [employer] [id number] Attune Cemented Posterior Stabilize Knee Right 6 Component - [id number] Implanted:Qty: 1 on 01/15/2019 by Parveen Leiva MD at [facility] Right: Knee [employer] 10/15/2028 [id number] / / [id number] [employer] [id number] Attune S+ Cement Fix Bearing Knee 6 Baseplate Tibial - [id number] Implanted:Qty: 1 on 01/15/2019 by Parveen Leiva MD at [facility] Right: Knee [employer] 08/16/2027 [id number] / / [id number] [employer] [id number] Attune 7mm Posterior Stabilize Fix Bearing Knee 6 Insert Tibial - [id number] Implanted:Qty: 1 on 01/15/2019 by Parveen Leiva MD at [facility] Right: Knee [employer] 09/16/2023 [id number] / / [id number] Procedures Procedure Name Priority [...] - 01/08/2019 6:07 PM CDT Performed at: [address] [place] [id number] Public Housing Interviewer: Easton Castillo PhD, Phone: [phone] Parveen Leiva MD LAB BLOOD ORDERABLES Fin al Result [facility] - 01 * (ABNORMAL) Comprehensive metabolic panel (01/05/2019 10:57 AM CDT) Pathologist [facility] Glucose 125(H) 65 - 99 mg/dL [facility] [...] - 01/08/2019 6:07 PM CDT Performed at: [facility] [address] [id number] Public Housing Interviewer: Easton Castillo PhD, Phone: [phone] Parveen Leiva MD LAB BLOOD ORDERABLES Fin al Result Performing Organization Address City/State/[facility] Co de Phone Number [facility] - 01 from Last 3 Months or Most Recently Relevant to Health Maintenance Insurance [employer] MEDICARE ADVANTAGE [facility] Address: [facility] [address] [place] [address] [facility]HC MEDICARE ADVANTAGE [facility] Address: [address] [address] [place] [address] [facility] Address: [address] [address] [place] [address] [facility] Address: [address] [address] [place] [address] Advance Directives For more information, please contact: [phone] * Full Code (Latest Code Status on File) Date Activated Date Inactivated Comments 01/15/2019 1:36 PM 01/16/2019 8:26 PM Care Teams Boat Motor Mechanic Relationship Specialty Start Date End Date Elfego, Howe Jewell, MD PCP - General Family Medicine 08/10/22 Tre Harrison MD Medical Oncologist/Professional Development Director Hematology and Oncology 10/17/18
== END 2024-08-28 12:49 | disposition home or self-care (01) ==
PROVIDERS: PCP Nurse Practitioner Family; Visit Provider Nurse Practitioner Family
DX: M80.08XA Age-related osteoporosis with current pathological fracture, vertebra(e), initial encounter for fracture (principal); M96.1 Postlaminectomy syndrome, not elsewhere classified; Z98.1 Arthrodesis status
CPT/HCPCS: 72158; A9579

== ENCOUNTER 2024-08-31 12:33 | Outpatient (CLI) | payer MEDICARE, SELFPAY ==
--- NOTE | ~2024-08-31 | DEXA_ITS ---
Bone Density Report Name: ALFREDO ARZATE Age: 69 Sex: Female Ethnicity: White Date of : 1955 Indication: postmenopausal; screening for osteoporosis; height loss; Referring Provider: RENO SHELDON Study: Bone densitometry was performed. Exam Date: August 31, 2024 Accession number: [id number] Bone Density: Region BMD T-score Z-score Classification Femoral Neck (Left) 0.709 -1.3 0.5 Osteopenia Total Hip (Left) 0.799 -1.2 0.3 Osteopenia Femoral Neck (Right) 0.571 -2.5 -0.8 Osteoporosis Total Hip (Right) 0.676 -2.2 -0.8 Osteopenia Total Hip Mean 0.737 -1.7 -0.3 Osteopenia World Health Organization criteria for BMD impression classify patients as: Normal (T-score at or above -1.0), Osteopenia (T-score between -1.0 and -2.5), or Osteoporosis (T-score at or below -2.5). 10-year Fracture Risk: FRAX not reported because: Some T-score for Spine Total or Hip Total or Femoral Neck at or below -2.5 Previous Exams: -- Region Exam Age BMD T-score BMD Change BMD Change Date g/cm2 vs Baseline vs Previous -- Total Hip(Left) 08/31/2024 69 0.799 -1.2 -12.2%# -12.2%# 12/03/2020 65 0.910 -0.3 -- *Denotes significance at 95% confidence level, LSC for Total Hip = 0.027 g/cm2 # Denotes dissimilar scan types or analysis methods Clinical Information Provided by Patient: Has used the following medications: Vitamin D, Calcium Patient maximum height was 66 Menopause Age: 42 No regular weight bearing exercise Onset of menses at age 10 Number of children 0 Impression: The patient has osteoporosis, based on the Right Femoral Neck T-score. Unable to evaluate interval change due to the use of different scan modes. Discussion: INCREASED RISK OF FRACTURE. BONE DENSITY IS UNDESIRABLY LOW AT ONE OR MORE SKELETAL SITES, CONSISTENT WITH POSTMENOPAUSAL OSTEOPOROSIS. This patient's lowest T-score meets the World Health Organization's (WHO) criteria for osteoporosis at one or more sites (T-score -2.5 or below). In untreated patients, the risk of osteoporotic fracture increases approximately two-fold for each 1.0 SD decrease in T-score. Low bone density is not the only risk factor for fracture; also consider factors such as patient's age, frailty or poor health, risk of falling, risk of injury, previous osteoporotic fracture, family history of osteoporosis, cigarette smoking, low body weight, etc. Not everyone with low bone mineral density has osteoporosis; osteomalacia and other metabolic bone disorders should also be considered. Patients who have osteoporosis should be evaluated for specific diseases and conditions (secondary causes) that may cause or contribute to bone loss. The [place] [employer] (AACE) and National Osteoporosis Foundation (NOF) recommend pharmacologic intervention for all postmenopausal women whose T-score is in this range. The patient should follow a healthful lifestyle (good nutrition with adequate calcium and vitamin D, and appropriate weight-bearing exercise). Follow-Up: Consider a repeat BMD and Vertebral Fracture Assessment (VFA) exam in 2 years or sooner if medically necessary, to reassess this patient's status. Reported by: JULIANNE on 09/05/2024 12:42:00 PM. Reviewed, dictated and finalized at location A.
== END 2024-08-31 12:34 | disposition home or self-care (01) ==
PROVIDERS: PCP Nurse Practitioner Family; Visit Provider Nurse Practitioner Family
DX: S32.000A Wedge compression fracture of unspecified lumbar vertebra, initial encounter for closed fracture (principal); X58.XXXA Exposure to other specified factors, initial encounter; M85.852 Other specified disorders of bone density and structure, left thigh; M85.88 Other specified disorders of bone density and structure, other site; M85.851 Other specified disorders of bone density and structure, right thigh; M81.0 Age-related osteoporosis without current pathological fracture
CPT/HCPCS: 77080